=== PATIENT | male | born 1995 | race Caucasian/White ===

== ENCOUNTER 2025-09-06 23:31 | Emergency (ER) | payer OTHER, MEDICAID ==
[~2025-09-06] VITALS: Ht 180.3 cm; Wt 87.0 kg
[2025-09-06 23:39] VITALS: O2SAT 98
[2025-09-07] MEDS: KETOROLAC 15MG/ML VIAL IM ONE (00:37)
[2025-09-07] MEDS: LIDOCAINE 5% PATCH TOP SCH (00:37)
[2025-09-07] MEDS ORDERED: LIDO-53 TP (01:56)
[2025-09-07] MEDS ORDERED: NAPR-1176 MT (01:56)
[2025-09-07] MEDS: ACETAMINOPHEN 325MG TABLET PO ONE (02:24)
[2025-09-07 03:09] VITALS: BP 113/82; PULSE 63; RESP 13; TEMP 36.7; O2SAT 100
== END 2025-09-07 03:11 | disposition home or self-care (01) ==
LOC: ER 23:31
DX: R07.81 Pleurodynia (principal); M25.512 Pain in left shoulder; Z79.1 Long term (current) use of non-steroidal anti-inflammatories (NSAID); V89.2XXA Person injured in unspecified motor-vehicle accident, traffic, initial encounter; Y93.89 Activity, other specified; Y92.410 Unspecified street and highway as the place of occurrence of the external cause; Y99.8 Other external cause status
CPT/HCPCS: 99284; 71045; 71100; 73030; 96372; J1885